=== PATIENT | male | born 1995 | race Caucasian/White ===

== ENCOUNTER 2017-03-07 19:37 | Emergency (ER) | payer BC ==
[~2017-03-07] VITALS: Ht 182.9 cm; Wt 88.2 kg
[2017-03-07 19:44] VITALS: BP 145/84; TEMP 36.9; Ht 182.9 cm; Wt 88.2 kg
[2017-03-07] MEDS ORDERED: LYSI500T PO (19:53)
--- NOTE | 2017-03-07 20:24 | EMERGENCY ROOM VISIT NOTE ---
History First contact with patient: 20:08 Chief Complaint: HEAD INJURY (MINOR) Stated Complaint: HEADACHE,POSSIBLE CONCUSSION History of Present Illness The patient is a 21 year old male who presents to the Emergency Room via private vehicle with complaints of "headache, possible concussion". The patient states that 1 hour/1.5 hours prior to arrival he was operating a skate board, when the wheels struck a tree branch, slinging him forward off of the skateboard striking his left forehead/eyebrow region off the ground. He struck the concrete. He believes he was traveling about 7-8 miles per hour. He denies loss of consciousness. He states that he has slight headache, and slight left-sided neck pain since the event. He states that he has a history of concussions, and decided to come here to be checked out. Review of Systems A complete 6-point Review of Systems was discussed with the patient, with pertinent positives and negatives listed in the History of Present Illness. All remaining Review of Systems questions can be considered negative unless otherwise specified. Past Medical/Surgical History Concussion.. Family History No pertinent. Social History Smoking Status: Never Smoker Patient is a [employer] student and lives locally. Current/Historical Medications Scheduled Lysine Acetate (L-Lysine Acetate), 1 TAB PO PRN Physical Exam Vital Signs Date Time Temp Pulse Resp B/P (MAP) Pulse Ox O2 Delivery O2 Flow Rate FiO2 03/07/17 20:34 79 16 97 03/07/17 19:47 18 03/07/17 19:44 36.9 86 18 145/84 99 Room Air Physical Exam VITAL SIGNS - Vital signs and nursing notes were reviewed. Stable. GENERAL -21-year-old male appearing his stated age who is in no acute distress. Communicates well with provider and answers questions appropriately. SKIN - Without rashes. There is a small abrasion over the left side of the left lateral eyebrow region. It is just above the eyebrow. Minimal bleeding noted. No gaping edges. No suturable laceration. No foreign body. No step- off fracture. HEAD - Normocephalic, Atraumatic. No Duncan's Sign or Raccoon's Eyes. No depressed skull fractures palpable. EYES - PERRL with EOMI bilaterally. Without subconjunctival hemorrhage. Palpebral conjunctiva pink and moist with no injection. EARS - No deformities of external structures noted on gross examination bilaterally. No hemotympanum present. No tympanic perforation noted. Handle of malleus, umbo, cone of light, pars tensa/flaccid all easily visualized. NOSE - Midline and without cyanosis. No epistaxis or clear watery discharge noted. Septum midline without deviation. No septal hematoma noted. No overlying ecchymosis noted. MOUTH/OROPHARYNX - Without perioral cyanosis. Tongue midline with equal elevation of palate bilaterally. No blood noted in the oropharynx. No tonsillar hypertrophy, erythema, or exudates noted. No dental fractures noted. NECK -no tenderness to palpation over the cervical spinous processes. There is slight left-sided cervical paraspinal muscle tenderness noted. LUNGS - Chest wall symmetric without accessory muscle use, intercostals retractions, or central cyanosis. No flail chest or depressed fractures noted. No paradoxical chest wall movements noted. Normal vesicular breath sounds CTA B /L. No wheezes, rales, or rhonchi appreciated. CARDIAC - RRR with S1/S2. No murmur, rubs, or gallops appreciated. EXTREMITIES - No gross deformities noted of the extremities. +5/5 strength noted in UE/LE bilaterally. NEUROLOGIC - Cranial nerves II through XII grossly intact. Sensory intact to light touch throughout. Patellar reflexes +2/4. PSYCH - A&O, and cooperates fully with examiner. Pt is very pleasant and interacts well with examiner. Medical Decision & Procedures Medical Decision Patient was seen and evaluated as above. He presents to us today status post head injury. He examines well. No neurologic or vascular deficits appreciated upon my examination. Small abrasion noted, this was cleansed with sterile gauze and normal saline as well as dressed with a bacitracin dressing. Benefits versus risk of obtaining CT scan of the patient's head was discussed with the patient as well as his mother via phone per the patient's request. Decision was made at this time not scan, and utilize a watch and wait method. He was thoroughly educated upon worrisome symptoms to watch out for, as well as his mother who is to call him chcf throughout his sleep and his roommate who is going to wake him up/friend. [place], [place]. He is to follow with [facility] as well as the concussion clinic if need be. He was educated upon management, educated upon worrisome symptoms which to return, had questions answered prior to discharge, and was discharged home in good condition. It is important to note that I do not suspect the patient is experiencing any acute intracranial abnormality other than a concussion. In the evaluation and treatment of this patient, the following differential diagnoses were considered: Concussion, Contrecoup Injury, Brain Tumor, Depression, Encephalitis, Hypothyroidism, Meningitis, CVA, TIA, Migraine, Cluster Headache, Intracranial Abnormality, Intracranial Hemorrhage, Subdural Hematoma, Subarachnoid Hemorrhage, Hydrocephalus. Impression Primary Impression: Closed head injury Additional Impression: Concussion Departure Information Dispostion Home / Self-Care Condition GOOD Referrals No Doctor, Assigned (PCP) Patient Instructions ED Concussion, My [facility] Additional Instructions You have been treated in the Emergency Department for a Closed Head Injury. For pain control, you can use the following [id number] medicines (if >12 yo): - Regular strength (325mg/tab) Tylenol (acetaminophen) 2 tabs every 4-6 hours as needed. Do not exceed 12 tablets in a 24 hour period. Avoid taking more than 3 grams (3000 mg) of Tylenol per day. This includes any other sources of acetaminophen you may take on a regular basis. - Regular strength (200 mg/tab) Advil (ibuprofen) 1-2 tabs every 4-6 hours as needed. Do not exceed a dose of 3200 mg per day. You should relax in a quiet, dark place for the rest of the day. Avoid any possible triggers including: cigarette smoke, caffeine, nicotine, chocolate, wine, beer, loud noises or music, or bright lights. You should schedule a follow-up appointment in 2-3 days with your Primary Care Provider or established Neurologist for further evaluation and treatment of your Headache. Please follow up with the concussion clinic for further evaluation and treatment of your injury: [facility] [phone] [place] [address] [address] You should NOT return to athletic play until reevaluated by your International Trade Specialist. You should fully comply with their standard protocol regarding head injuries. Your International Trade Specialist OR Primary Care Provider will have the final say in your return to athletic play. This timeframe should be AT LEAST 1 week AFTER the date of last symptoms experienced! This is ESSENTIAL to allow for adequate brain healing time and for reduced risk of re-injury. Return to the Emergency Department if your current symptoms worsen despite treatment course outlined above, or if you develop any of the following symptoms : intractable pain despite aforementioned treatment course, visual disturbances , loss of vision, unilateral weakness or facial drooping, slurring of speech, loss of coordination, or loss of consciousness. Problem Qualifiers
[2017-03-07 20:34] VITALS: PULSE 79; O2SAT 97
== END 2017-03-07 20:36 | disposition home or self-care (01) ==
LOC: C.EDB 19:39 → C.EDD 20:36
DX: S06.0X0A Concussion without loss of consciousness, initial encounter (principal); W22.09XA Striking against other stationary object, initial encounter; Y93.51 Activity, roller skating (inline) and skateboarding; Z87.820 Personal history of traumatic brain injury